=== PATIENT | female | born 1955 | race Caucasian/White ===

== ENCOUNTER 2023-04-13 19:53 | Observation (INO) | payer MEDICARE, OTHER, SELFPAY ==
[2023-04-13 19:58] VITALS: BP 129/70; PULSE 75; RESP 16; TEMP 37.9; O2SAT 97; BMI 21.7
--- NOTE | 2023-04-13 20:24 | XR_ITS ---
PROCEDURE INFORMATION: Exam: XR Left Knee Exam date and time: 04/13/2023 8:46 PM Age: 67 years old Clinical indication: Injury or trauma; Fall; Blunt trauma; Knee; Left; Additional info: Pain TECHNIQUE: Imaging protocol: Radiologic exam of the left knee. Views: 3 views. Total images: 3 COMPARISON: No relevant prior studies available. FINDINGS: Bones/joints: Osteopenia. Age indeterminate avulsion fracture lateral tibial spine. Otherwise, no acute fracture or joint dislocation. Moderate to large suprapatellar joint effusion. No concerning bone lesions or pathologic calcifications. No significant degenerative arthropathy. Soft tissues: Mild soft tissue swelling medial to the knee. IMPRESSION: 1. Age indeterminate avulsion fracture lateral tibial spine. 2. Moderate to large suprapatellar joint effusion. 3. Medial soft tissue swelling.
--- NOTE | 2023-04-13 20:26 | XR_ITS ---
PROCEDURE INFORMATION: Exam: XR Left Ankle Exam date and time: 04/13/2023 8:47 PM Age: 67 years old Clinical indication: Injury or trauma; Fall; Blunt trauma; Ankle; Left; Additional info: Pain TECHNIQUE: Imaging protocol: Radiologic exam of the left ankle. Views: 3 or more views. Total images: 3 COMPARISON: CR XR KNEE LT 3V 04/13/2023 8:46 PM FINDINGS: Bones/joints: Osteopenia. No acute fracture, joint dislocation, or joint effusion. The ankle mortise is maintained. No significant degenerative arthropathy. Calcaneal enthesophytes at the insertion of the Achilles tendon and plantar fascia. Soft tissues: Mild soft tissue swelling/edema lower extremity. IMPRESSION: 1. No acute osseous abnormality. 2. Mild lower extremity soft tissue swelling/edema. 3. Calcaneal enthesophytes.
--- NOTE | 2023-04-13 21:00 | PC.NURSE ---
Report given to Marie JIMENEZ.
--- NOTE | 2023-04-13 21:18 | HMH.EDGENADL ---
Discharge Plan Disposition Chief Complaint: PAIN Referrals Follow up/Referrals: Gary Emery MD [Primary Care Provider] - See instructions Sunny Clarke JR, MD [Physician] - See instructions Clinical Impressions Clinical Impression: Internal derangement of knee Discharge ED Provider: Paul (ED)[facility] HPI General Chief complaint: PAIN Stated complaint: AO 04/13@1500@home Injured L Knee/Leg Time Seen by Provider: 04/13/23 21:00 Mode of Arrival: Wheelchair Source of Information: Patient, Spouse and Medical Record Limitations: No Limitations Description of Symptoms (Recalled from ER Triage Doc. by RN): Patient stated that was working in yard. Stepped on stump and it fell through, twisting left knee. Swelling to left knee that radiates down to ankle. History of Present Illness HPI narrative: acute lt knee injury today - twist injury- unable to bear wt Onset (ago): hour(s) Location: lower extremity Severity: moderate Quality: aching Associated symptoms: denies other symptoms Related Data Home Medications Medication Instructions Recorded Confirmed citalopram 40 mg tablet 40 mg PO DAILY . 04/13/23 04/13/23 omeprazole 40 mg capsule,delayed 40 mg PO DAILY gerd 04/13/23 04/13/23 release pravastatin 20 mg tablet 20 mg PO HS High cholesterol 04/13/23 04/13/23 topiramate 100 mg tablet 100 mg PO DAILY . 04/13/23 04/13/23 trazodone 50 mg tablet 50 mg PO HS sleep 04/13/23 04/13/23 Allergies Allergy/AdvReac Type Severity Reaction Status Date / Time amoxicillin [From Augmentin] Allergy Verified 04/13/23 20:22 clavulanic acid Allergy Verified 04/13/23 20:22 [From Augmentin] morphine Allergy Verified 04/13/23 20:22 [facility] Disclaimer: The information contained in this section may have been updated after the patient was seen, as this information can be updated by other users. Social History Smoking Status: Current every day smoker alcohol intake: never current occupational status: employed Travel in the last 8 weeks: None ROS Obtained: Yes All systems reviewed & no additional complaints except as documented Physical Exam General General appearance: alert Head Head exam: normocephalic Eye Eye exam: Present PERRL and EOMI ENT ENT exam: Present mucous membranes moist Neck Neck exam: Present trachea midline Respiratory Respiratory exam: Absent respiratory distress Cardiovascular Cardiovascular exam: Present regular rate Expanded Lower Extremity Exam Left: Hip/Pelvis exam: Present pelvis stable Knee exam: Present tenderness, swelling and effusion; Absent erythema or knee extension intact Lower leg exam: Present tenderness and Achilles tendon intact Ankle exam: Present tenderness; Absent full ROM Neurovascular/Tendon exam: Present pulse deficit Gait: unable to bear weight Neurological Exam Neurological exam: Present alert, oriented X3 and CN II-XII intact; Absent motor sensory deficit Psychiatric Psychiatric exam: Present normal affect Skin Skin exam: Absent rash Medical Decision Making Medical Records Medical records reviewed: Yes I reviewed the patient's medical records. [facility] Inquiry Pt receiving controlled substance: No Vital Signs: 04/13/23 19:58 04/13/23 21:39 Temperature 100.3 F H 99.5 F Temperature Source Oral Oral Pulse Rate 87 Pulse Rate [Right] 75 Respiratory Rate 16 16 Blood Pressure 141/59 H Blood Pressure [Right Arm] 129/70 Blood Pressure Mean [Right Arm] 89 Blood Pressure Source Automatic Cuff Blood Pressure Source [Right Arm] Automatic Cuff Blood Pressure Position Supine Blood Pressure Position [Right Arm] Sitting 02 Sat by Pulse Oximetry 97 96 Oxygen Delivery Method Room Air Room Air Lab Data Lab results reviewed: Yes I reviewed the patient's lab results. Orders (Tests/Meds): ORDERS Category Date Time Status Ankle XR - Left minimum 3 Views [XR ankle LT min 3V] Exams 04/13/
--- NOTE | 2023-04-13 21:22 | XR_ITS ---
PROCEDURE INFORMATION: Exam: XR Left Hip Exam date and time: 04/13/2023 9:20 PM Age: 67 years old Clinical indication: Injury or trauma; Fall; Blunt trauma (contusions or hematomas); Hip; Patient HX: Fell and hit her left knee TECHNIQUE: Imaging protocol: Radiologic exam of the left hip. Views: 2 or 3 views hip with pelvis when performed. Total images: 3 COMPARISON: No relevant prior studies available. FINDINGS: Bones/joints: Osteopenia. No acute fracture or joint dislocation. Proximal femurs are intact. Hip joints are appropriate for age. No significant degenerative arthropathy. No widening of the pubic symphysis or sacroiliac joints. Mild degenerative spondylosis lower lumbar spine. Soft tissues: Unremarkable. Intraperitoneal space: Surgical clip midline pelvis. Gastrointestinal tract: Nonobstructive bowel gas pattern. Vasculature: Multiple pelvic phleboliths. IMPRESSION: Negative left hip and pelvis.
--- NOTE | 2023-04-13 21:25 | XR_ITS ---
PROCEDURE INFORMATION: Exam: XR Left Tibia and Fibula Exam date and time: 04/13/2023 9:21 PM Age: 67 years old Clinical indication: Injury or trauma; Blunt trauma; Lower leg; Patient HX: Fall and hit left knee TECHNIQUE: Imaging protocol: Radiologic exam of the left tibia and fibula. Views: 2 views. Total images: 4 COMPARISON: CR XR ANKLE LT MIN 3V 04/13/2023 8:47 PM FINDINGS: Bones/joints: Osteopenia. Age indeterminate avulsion fracture lateral tibial spine. Otherwise, no acute fracture or joint dislocation. Moderate to large suprapatellar joint effusion. No concerning bone lesions or calcifications. Soft tissues: Mild superficial soft tissue swelling/edema throughout the lower extremity. IMPRESSION: 1. Age indeterminate avulsion fracture lateral tibial spine. 2. No additional fractures. 3. Nonspecific mild superficial soft tissue edema. 4. Moderate to large suprapatellar joint effusion.
[2023-04-13 21:39] VITALS: BP 141/59; PULSE 87; RESP 16; TEMP 37.5; O2SAT 96
--- NOTE | 2023-04-13 21:51 | PC.NURSE ---
Dr. Miller on phone with Dr. Clarke.
--- NOTE | 2023-04-13 22:12 | PC.NURSE ---
paged dr lindsey @ this time
--- NOTE | 2023-04-13 22:16 | PC.NURSE ---
modesta on phone with dr lindsey
[2023-04-13 22:32] LABS: Coronavirus 19, PCR Not Detected (NotDetected); Influenza A, PCR Not Detected (NotDetected); Influenza B, PCR Not Detected (NotDetected)
--- NOTE | 2023-04-13 22:33 | PC.NURSE ---
Patient admitted to [address] Emery with internal arrangement of the left knee.
[2023-04-13 22:41] LABS: Basophils % 0.3 % (0.1-2.0); Eosinophils # 0.1 K/mm3 (0.0-0.4); Eosinophils % 0.4 % (0.1-12.0); Hematocrit 35.5 % (37.0-47.0); Hemoglobin 11.7 g/dL (12.2-16.2); Lymphocytes # 1.6 K/mm3 (0.7-4.5); Lymphocytes % 13.7 % (10-50); Mean Corpuscular Hemoglobin 31.1 pg (27.0-31.2); Mean Corpuscular Volume 94.3 fl (81-99); Mean Platelet Volume 7.7 fl (7.4-10.4); Monocytes # 0.6 K/mm3 (0.1-1.0); Monocytes % 4.9 % (1.7-9.3); Neutrophils # 9.7 K/mm3 (1.8-7.8); Neutrophils % 80.7 % (37.0-80.0); Platelet Count 240 K/mm3 (142-424); Red Blood Count 3.77 M/mm3 (4.20-5.40); Red Cell Distribution Width 14.3 % (11.5-17.5)
[2023-04-13 22:47] LABS: Chloride 102 mmol/L (98-107)
[2023-04-13 22:48] LABS: Potassium 3.6 mmoL/L (3.5-5.1); Sodium 139 mmol/L (136-145)
[2023-04-13 22:50] LABS: Alanine Aminotransferase 22 U/L (12-78); Alkaline Phosphatase 68 U/L (38-126); Aspartate Amino Transferase 29 U/L (14-36); Blood Urea Nitrogen 9 mg/dl (7-17); Creatinine Clearance Estimated 48 mL/min (50-200); Estimated Glomerular Filt Rate 72 ml/min (>60); GFR (African American) 87 ML/MIN (>60)
[2023-04-13 22:51] LABS: Albumin Level 4.3 g/dl (3.5-5.0); Albumin/Globulin Ratio 1.6 (1.1-1.8); Anion Gap 14.6 mEq/L (5-15); Calcium 9.9 mg/dl (8.4-10.2); Carbon Dioxide 26 mmol/L (22.0-30.0); Globulin 2.7 g/dL (1.3-3.2); Glucose 118 mg/dl (74-100)
[2023-04-13 22:53] LABS: Bilirubin,Total 0.1 mg/dl (0.2-1.3)
[2023-04-13 23:03] VITALS: BP 145/55; PULSE 70; RESP 16; O2SAT 99
[2023-04-13 23:56] VITALS: BP 137/87; PULSE 71; RESP 16; TEMP 37.1; O2SAT 97
[2023-04-14] VITALS: BP 122/65; PULSE 75; RESP 16; TEMP 36.9; O2SAT 93; O2SAT 98; BMI 23.5
--- NOTE | 2023-04-14 | PC.NURSE ---
pt arrived via wheelchair @ 00:00
[2023-04-14 03:57] VITALS: BMI 24.0
[2023-04-14 07:51] VITALS: BP 106/66; PULSE 61; RESP 18; TEMP 37.4; O2SAT 95
--- NOTE | 2023-04-14 08:23 | EXP.HP ---
History of Present Illness *Admission Date: 04/14/23 *Reason for visit:: left knee pain *History of present illness: Ms. Boyce is a 67-year-old female who was cleaning around an old tree stump when the stump gave way and her left foot fell into the tree stump twisting her knee. She states she felt like her foot went one way and her knee went the other. It immediately began swelling and she had difficulty bearing weight. She presented to the emergency room for further evaluation and treatment. Her knee x-ray showed an avulsion fracture of the lateral tibial spine, a moderate to large suprapatellar joint effusion, and medial soft tissue swelling. Her ankle x-ray showed mild lower extremity soft tissue swelling, but no fracture. Her hip x-ray was negative for fracture her tib-fib x-ray showed an avulsion fracture of the lateral tibial spine but no additional fractures. She was admitted and orthopedics was consulted. [facility] Disclaimer: The information contained in this section may have been updated after the patient was seen, as this information can be updated by other users. Medical History (Updated 04/14/23 @ 08:36 by ЮЛИЯ Young) Arthritis Depression Gastric ulcer History of gastroesophageal reflux (GERD) Hyperlipemia Hypertension Insomnia Migraines Surgical History (Updated 04/14/23 @ 08:29 by ЮЛИЯ Young) History of appendectomy History of cholecystectomy History of tonsillectomy Family History (Updated 04/14/23 @ 08:30 by ЮЛИЯ Young) Diabetes Coronary artery disease Cancer Hypertension Stroke Social History Smoking Status: Current every day smoker alcohol intake: never current occupational status: employed Travel in the last 8 weeks: None Review of Systems Constitutional Constitutional: Denies fatigue, Denies headache(s) and Denies weakness Eyes Eyes: Denies blurry vision and Denies diplopia ENT Ears, Nose, Mouth, and Throat: Denies headache(s), Denies nasal congestion, Denies sore throat and Denies vertigo *Cardiovascular Cardiovascular: Denies chest pain, Denies dyspnea and Denies leg edema *Respiratory Respiratory: Denies cough and Denies dyspnea *Gastrointestinal Gastrointestinal: Denies abdominal pain, Denies loose stools, Denies nausea and Denies vomiting *Genitourinary Genitourinary: Denies dysuria *Musculoskeletal Musculoskeletal: Reports arthralgias (left knee) and Denies myalgias *Neurologic Neurologic: Denies headache(s), Denies vertigo and Denies weakness Endocrine Endocrine: Denies fatigue Meds Home Medications and Allergies Home Medications Medication Instructions Recorded Confirmed Type citalopram 40 mg tablet 20 mg PO DAILY MOOD 04/13/23 04/14/23 History omeprazole 40 mg capsule,delayed 40 mg PO DAILY Acid reflux 04/13/23 04/13/23 History release pravastatin 20 mg tablet 20 mg PO HS Cholesterol 04/13/23 04/13/23 History topiramate 100 mg tablet 100 mg PO BID MIGRAINES 04/13/23 04/14/23 History trazodone 50 mg tablet 50 mg PO HS sleep 04/13/23 04/13/23 History cetirizine 10 mg tablet 10 mg PO DAILY Allergy symptoms 04/14/23 04/14/23 History cyanocobalamin (vitamin B-12) 500 500 mcg PO DAILY Supplement 04/14/23 04/14/23 History mcg tablet New Prescriptions to Start Prescriptions: Allergies Allergy/AdvReac Type Severity Reaction Status Date / Time amoxicillin [From Augmentin] Allergy Verified 04/13/23 20:22 clavulanic acid Allergy Verified 04/13/23 20:22 [From Augmentin] morphine Allergy Verified 04/13/23 20:22 Exam Data for Last 24 hours Vital signs and Labs for Last 24 Hours: Temp Pulse Resp BP Pulse Ox 99.3 F 61 18 106/66 L 95 04/14/23 07:51 04/14/23 07:51 04/14/23 07:51 04/14/23 07:51 04/14/23 07:51 Laboratory Results - last 24 hr 04/13/23 22:25: SARS-CoV-2 (PCR) Not detected, Influenza A Untype (PCR) Not detected, Influenza Type B (PCR)
--- NOTE | 2023-04-14 08:35 | HMH.PHAINT1 ---
Pharmacy Intervention Comments: MEDICATION RECONCILIATION COMPLETED ON PATIENT USING EXTERNAL FILL HISTORY FROM PHARMACY AND LIST FROM [facility]. -ANTWAN MOYA, VISHALD
--- NOTE | 2023-04-14 09:04 | MR_ITS ---
FINAL REPORT CLINICAL HISTORY: LEFT KNEE PAIN. PAIN AFTER FALL. FINDINGS: Multiplanar MR imaging of the right knee was performed without contrast. Motion artifact is identified on all of the images. The medial meniscus is intact. There is a tear of the anterior horn of the lateral meniscus. The anterior and posterior cruciate ligaments are intact. There is a partial tear of the proximal medial collateral ligament. The lateral collateral ligamentous complex is intact. The patellar and quadriceps tendons are intact. There is a mildly comminuted fracture of the lateral tibial plateau. There is approximately 2 mm of impaction of the main fracture fragment. Mild degenerative changes are present. No focal abnormality is identified of the articular cartilage. Large joint effusion is seen. The musculature is intact. No soft tissue mass or cyst is identified. IMPRESSION: Tear anterior horn lateral meniscus. Partial tear of the medial collateral ligament. Mildly comminuted fracture of the lateral tibial plateau. Reviewed, Interpreted and Dictated by Manfred Ro III, MD Transcribed by Ankita Patrick Authenticated and [facility]
[2023-04-14 10:02] VITALS: BMI 24.0
--- NOTE | 2023-04-14 14:44 | CT_ITS ---
FINAL REPORT TECHNIQUE: Thin section axial CT images of the left knee with coronal and sagittal reformats were performed. 3D reformatted images were also obtained. This study was performed with techniques to keep radiation doses as low as reasonably achievable (ALARA). Individualized dose reduction techniques using automated exposure control or adjustment of mA and/or kV according to the patient''s size were employed. CLINICAL HISTORY: tibial plateau fracture FINDINGS: There is a comminuted, nondisplaced fracture of the lateral tibial plateau with 1 mm of impaction of a fracture fragment. There is moderate hemarthrosis. No other fracture is identified. Joint space is normally aligned. IMPRESSION: Comminuted, nondisplaced fracture of the lateral tibial plateau. Reviewed, Interpreted and Dictated by Manfred Ro III, MD Transcribed by Donna Payton Authenticated and [facility]
[2023-04-14 16:00] VITALS: BP 118/57; PULSE 60; RESP 18; TEMP 37; O2SAT 94
--- NOTE | 2023-04-14 16:05 | HMH.PTEV ---
Physical Therapy Evaluation Rehab PT IP Evaluation Start: 04/14/23 14:59 Freq: ONCE Status: Active Protocol: Document 04/14/23 15:48 ADAM (Rec: 04/14/23 16:04 ADAM [id number]) Subjective/History History History Patient is a 67 year old female admitted to [facility] 04/13/23 secondary to internal derangement of L knee. Most recent imagning indicates tear of L anterior lateral meniscus, Partial tear of MCL and fracture of L medial tibial plateau. 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 Patient previously independent with all ADL's/ IADL's. Patients reports multiple family members that can help with transition to home. Subjective Subjective I can't put any weight on my leg because it hurts so bad. Rehab PT IP Eval Objective Appearance Patient Behavior Appropriate,Cooperative Patient Orientation Person,Place,Day of Week Difficulty following instructions none Speech Pattern Clear,Appropriate Ambulation Patient Able to Ambulate Yes Ambulation Observation Ambulation Distance (feet) 6 Ambulation Assistive Device Rolling Walker Ambulation Ability Minimal x 2 (25% assist) Balance Ability to Arise Able, uses arms to help Standing Balance Unsteady Dynamic Sitting Balance Ability Normal Dynamic Standing Balance Ability Fair Transfers Bed Transfer Ability Independent Sit to Stand Bed Transfer Ability Minimal x 1 (25% assist) Pain Left Knee Pain Intensity 8 ROM LLE PT ROM Status ABN Abnormal ROM Comment L knee flx/ext ltd, in immobilizer MMT LLE PT MMT ABN Abnormal MMT Grade 3-/5 Rehab PT IP prob,goals,plan Problems Date of Evaluation: 04/14/23 PT IP Problems Gait,Balance,Self care,Safety Rehab Potential Rehab Potential Good Equipment Needs Assistive Devices Rolling / Wheeled Walker Plan PT Intervention Plan Transfers,Gait,Balance,Safety, Therapeutic Exercise
--- NOTE | 2023-04-14 17:25 | EXP.ORTH.CON ---
History of Present Illness *Admission Date: 04/14/23 *History of present illness: Ms. Boyce is a 67-year-old female who was cleaning around an old tree stump when the stump gave way and her left foot fell into the tree stump twisting her knee. She states she felt like her foot went one way and her knee went the other. It immediately began swelling and she had difficulty bearing weight. She presented to the emergency room for further evaluation and treatment. Her knee x-ray showed an avulsion fracture of the lateral tibial spine, a moderate to large suprapatellar joint effusion, and medial soft tissue swelling. Her ankle x-ray showed mild lower extremity soft tissue swelling, but no fracture. Her hip x-ray was negative for fracture her tib-fib x-ray showed an avulsion fracture of the lateral tibial spine but no additional fractures. She was admitted and orthopedics was consulted. [facility] Disclaimer: The information contained in this section may have been updated after the patient was seen, as this information can be updated by other users. Medical History (Updated 04/14/23 @ 17:33 by Sunny Clarke JR, MD) Arthritis Depression Gastric ulcer History of gastroesophageal reflux (GERD) Hyperlipemia Hypertension Insomnia Migraines Surgical History (Updated 04/14/23 @ 08:29 by ЮЛИЯ Young) History of appendectomy History of cholecystectomy History of tonsillectomy Family History (Updated 04/14/23 @ 08:30 by ЮЛИЯ Young) Other Cancer Coronary artery disease Diabetes Hypertension Stroke Social History Smoking Status: Current every day smoker alcohol intake: never current occupational status: employed Travel in the last 8 weeks: None Review of Systems Constitutional Constitutional: Denies headache(s) and Denies weakness ENT Ears, Nose, Mouth, and Throat: Denies headache(s) and Denies vertigo *Neurologic Neurologic: Denies headache(s), Denies vertigo and Denies weakness Meds Home Medications and Allergies Home Medications Medication Instructions Recorded Confirmed Type citalopram 40 mg tablet 20 mg PO DAILY MOOD 04/13/23 04/14/23 History omeprazole 40 mg capsule,delayed 40 mg PO DAILY Acid reflux 04/13/23 04/13/23 History release pravastatin 20 mg tablet 20 mg PO HS Cholesterol 04/13/23 04/13/23 History topiramate 100 mg tablet 100 mg PO BID MIGRAINES 04/13/23 04/14/23 History trazodone 50 mg tablet 50 mg PO HS sleep 04/13/23 04/13/23 History cetirizine 10 mg tablet 10 mg PO DAILY Allergy symptoms 04/14/23 04/14/23 History cyanocobalamin (vitamin B-12) 500 500 mcg PO DAILY Supplement 04/14/23 04/14/23 History mcg tablet oxycodone 5 mg tablet 5 mg PO Q4H PRN pain #30 tabs 04/14/23 Rx New Prescriptions to Start Prescriptions: oxycodone Sunny Clarke JR Allergies Allergy/AdvReac Type Severity Reaction Status Date / Time amoxicillin [From Augmentin] Allergy Verified 04/13/23 20:22 clavulanic acid Allergy Verified 04/13/23 20:22 [From Augmentin] morphine Allergy Verified 04/13/23 20:22 Ortho Exam (Inpt) Vital signs and Labs for Last 24 Hours: Temp Pulse Resp BP Pulse Ox 98.6 F 60 18 118/57 L 94 L 04/14/23 16:00 04/14/23 16:00 04/14/23 16:00 04/14/23 16:00 04/14/23 16:00 Laboratory Results - last 24 hr 04/13/23 22:25: SARS-CoV-2 (PCR) Not detected, Influenza A Untype (PCR) Not detected, Influenza Type B (PCR) Not detected 04/13/23 22:32: WBC 12.0 H, RBC 3.77 L, Hgb 11.7 L, Hct 35.5 L, MCV 94.3, MCH 31.1, MCHC 33.0, RDW 14.3, Plt Count 240, MPV 7.7, Neut % (Auto) 80.7 H, Lymph % (Auto) 13.7, [place] % (Auto) 4.9, Eos % (Auto) 0.4, Baso % (Auto) 0.3, Neut # (Auto) 9.7 H, Lymph # (Auto) 1.6, [place] # (Auto) 0.6, Eos # (Auto) 0.1, Baso # (Auto) 0.0 04/13/23 22:32: Sodium 139, Potassium 3.6, Chloride 102, Carbon Dioxide 26, Anion Gap 14.6, BUN 9, Creatinine 0.80, Estimated Cr
--- NOTE | 2023-04-14 19:04 | PC.NURSE ---
pt has done well this shift. she was medicated for pain x2 with prn dilaudid with good effectiveness. knee brace provided from pt.
[2023-04-14 20:00] VITALS: BP 119/63; PULSE 66; RESP 16; TEMP 36.7; O2SAT 91
--- NOTE | 2023-04-15 02:45 | PC.NURSE ---
patient had dose of dilaudid at beginning of shift; recvd v.o. from Dr. Michaud to begin giving Oxycodone 5-325mg 1-2 tablets every 6 hours PRN for pain (1-tablet for moderate pain & 2 tablets for severe pain). Patient just recvd 1st dose of oral pain medication with HS meds and 2nd dose of oral medications now. Instructed patient to begin bowel regimen when she gets home due to the side effect of constipation with narcotics. Patient verb understanding.
[2023-04-15 04:00] VITALS: BP 95/45; PULSE 65; RESP 16; TEMP 36.6; O2SAT 95; BMI 24.0
[2023-04-15 07:22] VITALS: BP 96/53; PULSE 59; RESP 17; TEMP 36.4; O2SAT 93
--- NOTE | 2023-04-15 11:48 | EXP.DC.SUM ---
General Admission date:: 04/13/23 Discharge date: 04/15/23 HPI HPI HPI: Ms. Boyce is a 67-year-old female who was cleaning around an old tree stump when the stump gave way and her left foot fell into the tree stump twisting her knee. She states she felt like her foot went one way and her knee went the other. It immediately began swelling and she had difficulty bearing weight. She presented to the emergency room for further evaluation and treatment. Her knee x-ray showed an avulsion fracture of the lateral tibial spine, a moderate to large suprapatellar joint effusion, and medial soft tissue swelling. Her ankle x-ray showed mild lower extremity soft tissue swelling, but no fracture. Her hip x-ray was negative for fracture her tib-fib x-ray showed an avulsion fracture of the lateral tibial spine but no additional fractures. She was admitted and orthopedics was consulted. Hospital Course Hospital Course Hospital Course: Patient was admitted as noted. Pain control was achieved with Dilaudid, orthopedics was consulted. CT imaging and MRI was done to evaluate whether or not there was a tendon or ligament tear that would require operative intervention. There was not, but orthopedics wished patient to be held over another night so that PT could reevaluate her to see if she would be safe at home with nonweightbearing status. This was done, and I followed patient this morning on cross cover as her primary physician is out of town. She felt well overnight, tolerated p.o. Percocet well and PT gave us a good report this morning of her ability to transfer with nonweightbearing status. She lives at home, does care for her elderly mother but her is involved and will be able to help her out during her rehabilitation.. Plan to be discharged home today with a walker. We will have orthopedics see her next week and Percocet will be prescribed for her pain from her fracture. Exam Data for Last 24 hours Vital signs and Labs for Last 24 Hours: Temp Pulse Resp BP Pulse Ox 97.6 F 59 L 17 96/53 L 93 L 04/15/23 07:22 04/15/23 07:22 04/15/23 07:22 04/15/23 07:22 04/15/23 07:22 I & O for Last 24 hours: Intake & Output 04/12/23 04/13/23 04/14/23 04/15/23 11:59 11:59 11:59 11:59 Intake Total 329 / 329 120 / 120 Output Total 700 / 700 1200 / 1200 Balance -371 / -371 -1080 / -1080 Weight 135 lb 5.821 oz 135 lb 6 oz Constitutional Constitutional: no acute distress *Routine HEENT Exam Head: Present normocephalic Eye: Present EOMI and PERRL ENT: Present mucous membranes moist *Routine Neck Exam Neck: Present supple; Absent lymphadenopathy *Routine Respiratory Exam Respiratory: Present CTA bilaterally *Routine Cardiovascular Exam Cardiovascular: Present RRR *Routine Abdominal Exam Abdominal: Present soft and normoactive bowel sounds; Absent tenderness *Routine Extremities Exam Extremities: Absent cyanosis, clubbing or edema Comments: Patient with significant pain around the left knee, and a hinged brace-pain with movement but no pain at rest. Please see orthopedic and PT exam for further details. *Routine Skin Exam Skin: Present warm; Absent rash *Routine Neurological Exam Neurological: Present alert and oriented X3 DS: Diagnosis Discharge Diagnosis (1) Closed fracture of lateral portion of left tibial plateau: Status: Acute Code(s): S82.122A - Displaced fracture of lateral condyle of left tibia, initial encounter for closed fracture Meds Home Medications and Allergies Home Medications Medication Instructions Recorded Confirmed Type citalopram 40 mg tablet 20 mg PO DAILY MOOD 04/13/23 04/14/23 History omeprazole 40 mg capsule,delayed 40 mg PO DAILY Acid reflux 04/13/23 04/13/23 History release pravastatin 20 mg tablet 20 mg PO HS Cholesterol 04/13/23 04/13/23 History topiramate 100 mg tablet 100 mg PO BID MIGRAINES 04/13/23 04/14/23 History trazodone 50 mg tablet 50 mg PO HS sleep 05
--- NOTE | 2023-04-18 13:40 | CARE MANAGER ---
Contacted patient related to recent hospital stay. She states she did fern picker her pain medication, but that she is still having pain. Transferred her to ortho to schedule a follow up appointment. patient denies any questions or concerns. BARBARA Martinez
== END 2023-04-15 13:14 | disposition home or self-care (01) ==
LOC: ER 22:10 → 2ND 22:39
PROVIDERS: Admitting Provider Family Medicine; Emergency Provider Emergency Medicine; PCP Family Medicine; Visit Provider Family Medicine
DX: S82.122A Displaced fracture of lateral condyle of left tibia, initial encounter for closed fracture (principal); I10 Essential (primary) hypertension; E78.5 Hyperlipidemia, unspecified; F17.210 Nicotine dependence, cigarettes, uncomplicated; Z79.899 Other long term (current) drug therapy; Z20.822 Contact with and (suspected) exposure to COVID-19; W17.2XXA Fall into hole, initial encounter; Y92.017 Garden or yard in single-family (private) house as the place of occurrence of the external cause
CPT/HCPCS: G0378; 73502; 73562; 73590; 73610; 73700; 73721; 80053; 85025; 87635; 87636; 97116; 97163; 97530; 97760; 99285; C9803; J2405; U0003; U0005

== ENCOUNTER → 2023-04-21 14:14 | Outpatient (CLI) | payer MEDICARE, OTHER, SELFPAY ==
--- NOTE | 2023-04-21 14:23 | XR_ITS ---
FINAL REPORT CLINICAL HISTORY: lt tibia fx COMPARISON: 04/14/2023 FINDINGS: LEFT KNEE Three views demonstrate a nondisplaced lateral tibial plateau fracture. There is a small joint effusion. Generalized osteopenia is noted. IMPRESSION: Non displaced lateral tibial plateau fracture without depressed fragment. Reviewed, Interpreted and Dictated by Mar Camarillo MD Transcribed by Sushma Mcclure Authenticated and [facility]
== END ==
PROVIDERS: PCP Family Medicine; Visit Provider Orthopaedic Surgery
DX: S82.122A Displaced fracture of lateral condyle of left tibia, initial encounter for closed fracture (principal); M25.562 Pain in left knee
CPT/HCPCS: 73562

== ENCOUNTER → 2023-05-19 12:20 | Outpatient (CLI) | payer MEDICARE, OTHER, SELFPAY ==
--- NOTE | 2023-05-19 12:23 | XR_ITS ---
FINAL REPORT CLINICAL HISTORY: knee pain COMPARISON: 04/21/2023 FINDINGS: LEFT KNEE SERIES Three views of the left knee were obtained. There is a comminuted fracture of the lateral tibial plateau. There is evidence of interval healing. The bony alignment is stable. There are mild degenerative changes. There is no soft tissue abnormality. IMPRESSION: Interval healing of a comminuted fracture of the lateral tibial plateau with stable bony alignment. Mild degenerative changes. Reviewed, Interpreted and Dictated by Manfred Ro III, MD Transcribed by Magnolia Kirk Authenticated and [facility]
== END ==
PROVIDERS: PCP Family Medicine; Visit Provider Orthopaedic Surgery
DX: S82.122A Displaced fracture of lateral condyle of left tibia, initial encounter for closed fracture (principal); M25.562 Pain in left knee
CPT/HCPCS: 73562

== ENCOUNTER 2023-05-19 13:03 | Outpatient (RCR) | payer MEDICARE, OTHER, SELFPAY | END 2023-05-19 14:00 | disposition home or self-care (01) | LOC: PT 13:03 | PROVIDERS: Visit Provider Orthopaedic Surgery | DX: S82.122A Displaced fracture of lateral condyle of left tibia, initial encounter for closed fracture (principal) | CPT/HCPCS: 97760 ==

== ENCOUNTER → 2023-06-23 10:46 | Outpatient (CLI) | payer MEDICARE, OTHER, SELFPAY ==
--- NOTE | 2023-06-23 10:52 | XR_ITS ---
FINAL REPORT CLINICAL HISTORY: lt knee pain FINDINGS: Left knee Three views were obtained. There is no acute fracture or dislocation. There are mild degenerative changes. No joint effusion is identified. No soft tissue abnormality is identified. IMPRESSION: No acute process. Reviewed, Interpreted and Dictated by Manfred Ro III, MD Transcribed by Ankita Patrick Authenticated and [facility]
== END ==
PROVIDERS: PCP Family Medicine; Visit Provider Orthopaedic Surgery
DX: S82.122A Displaced fracture of lateral condyle of left tibia, initial encounter for closed fracture (principal)
CPT/HCPCS: 73562

== ENCOUNTER 2023-09-20 13:00 | Outpatient (RCR) | payer MEDICARE, OTHER, SELFPAY ==
--- NOTE | 2023-07-20 15:14 | HMH.PTOPEV ---
PT Outpatient Evaluation Rehab PT Outpatient Evaluation Start: 07/20/23 13:58 Freq: Status: Active Protocol: Document 07/20/23 13:58 RAYSHAWN (Rec: 07/20/23 15:14 RAYSHAWN [id number]) E-signed By Veronica King, PT Outpatient Therapy Subjective History Subjective History Pt is a 68 y/o female who reports she fractured her left lower leg on 04/13/23 when it went through a rotted tree stump while trimming bushes. Pt reports she went to the ED the same day due to inability to walk. Pt reports she had a MRI and a CT scan and was found to have a L comminuted lateral tibial condyle fracture. Pt reports she was placed in a leg long brace and was NWB for 8-9 weeks. Pt reports she was then transitioned into a hinged knee brace for a few more weeks and partially increased her WB status. Pt reports she was allowed to removed the knee brace and quit using a RW for ambulation about 2 weeks. Pt reports she is doing well with this and denies falls. Pt reports she had recent xrays on 06/23/23 which per MD demonstrate interval fracture consolidation without displacement. Pt reports her leg was swelling from the ankle to the foot with increased activities initially but this is improving. Pt reports she has decreased light touch sensation of the lateral lower leg compared to the right but denies true numbness or tingling. Pt reports she has some deep generalized L knee pain that is aggravated by standing/ walking <5 minutes, stepping up with the bad leg, getting in/out of the car, and stiffness with prolonged
--- NOTE | 2023-08-24 12:28 | HMH.RHREAS ---
Rehab Reassessment Rehab OP Re-assessment Start: 07/20/23 13:58 Freq: Status: Active Protocol: Document 08/24/23 11:24 RAYSHAWN (Rec: 08/24/23 12:28 RAYSHAWN [id number]) E-signed By Veronica King PT Lower Extremity Functional Index Activities Today, do you or would you have any difficulty at all with: a.Any of your usual work, housework or A little bit of difficulty school activities b. Your usual hobbies, recreational or A little bit of difficulty sporting activities c. Getting into or out of the bath No difficulty d. Walking between rooms No difficulty e. Putting on your shoes or socks A little bit of difficulty f. Squatting Moderate difficulty g. Lifting an object, like a bag of No difficulty groceries from the floor h. Performing light activities around No difficulty your home i. Performing heavy activities around A little bit of difficulty your home j. Getting into or out of a car A little bit of difficulty k. Walking 2 blocks No difficulty l. Walking a mile A little bit of difficulty m. Going up or down 10 stairs (about 1 A little bit of difficulty flight of stairs) n. Standing for 1 hour No difficulty o. Sitting for 1 hour A little bit of difficulty p. Running on even ground A little bit of difficulty q. Running on uneven ground Moderate difficulty r. Making sharp turns while running fast Moderate difficulty s. Hopping No difficulty t. Rolling over in bed No difficulty LEFI Score Lower Extremity Functional Index Score 65 Rehab Re-assessment Subjective Subjective Pt reports her mother has been sick in the hospital which is why she has been unable to attend the last few PT sessions. Pt reports she has been somewhat compliant with her HEP during this time although she has been busy caring for her mom. Overall, the pt reports she feels 50% improved since starting PT and reports pain at worst as 3/10 on VAS scale. Pt reports swelling has improved some with wear of Tubigrip however it does still continue to swell throughout the day. Pt reports she still is cautious with stairs and uses a step to pattern as well as has trouble descending the stairs
== END 2023-09-20 13:05 | disposition home or self-care (01) ==
LOC: PT 13:00
PROVIDERS: PCP Family Medicine; Visit Provider Orthopaedic Surgery
DX: S82.122A Displaced fracture of lateral condyle of left tibia, initial encounter for closed fracture (principal)
CPT/HCPCS: 97014; 97016; 97110; 97163; 97164; 97530; G0283

== ENCOUNTER → 2023-10-18 08:11 | Outpatient (CLI) | payer MEDICARE, OTHER, SELFPAY ==
--- NOTE | 2023-10-18 08:22 | MM_ITS ---
PROCEDURE INFORMATION: Exam: MG Bilateral Screening 3D Mammography Exam date and time: 10/18/2023 8:15 AM Age: 68 years old Clinical indication: Screening examination.Screening. No family history of breast cancer. TECHNIQUE: Imaging protocol: Bilateral Screening tomosynthesis and 2D mammography including computer-aided detection (CAD) when performed. COMPARISON: No relevant prior studies available.If prior mammograms are provided, I am happy to add an addendum. FINDINGS: MAMMOGRAPHY: Breast composition: There are scattered areas of fibroglandular density. Mass: None. Architectural distortion: None. Calcifications: No suspicious calcifications. Asymmetric density: None. Skin thickening: None. Axillary adenopathy: None. IMPRESSION: No mammographic evidence of malignancy. Annual screening is recommended unless otherwise clinically indicated. ASSESSMENT: BI-RADS Category 1: Negative
--- NOTE | 2023-10-18 08:23 | XR_ITS ---
FINAL REPORT CLINICAL HISTORY: POST MENOPAUSAL COMPARISON: None FINDINGS: Using L1-4, the bone mineral density of the spine is 0.755 g/cm2, corresponding to T-score of -2.7, consistent with osteoporosis. Using the left hip, the bone mineral density of the femoral neck is 0.524 g/cm2, corresponding to a T-score of -3.4, consistent with osteoporosis. Using the right hip, the bone mineral density of the femoral neck is 0.671 g/cm2, corresponding to a T-score of -2.2, consistent with osteopenia. FRAX not reported because some T-score at or below -2.5. NOTE: T-score: Standard deviation compared with peak bone mass of young adult mean. *Following the recommendations of the International Society of Bone densitometry, classification of hip BMD is based on the lower of two T-scores; total hip or femoral neck. IMPRESSION: Diminished bone mineral density consistent with osteoporosis. Reviewed, Interpreted and Dictated by Esa Barone MD Transcribed by Pennie Patten Authenticated and [facility]
--- NOTE | 2023-10-18 08:24 | CT_ITS ---
FINAL REPORT TECHNIQUE: Axial CT images of the chest were obtained without contrast. Low-dose protocol was utilized. This study was performed with techniques to keep radiation doses as low as reasonably achievable (ALARA). Individualized dose reduction techniques using automated exposure control or adjustment of mA and/or kV according to the patient's size were employed. CLINICAL HISTORY: H/O TOBACCO USE prior smoker , quit 6 mos ago, prev smoked 7 cigs per day for 52 years COMPARISON: None FINDINGS: CT CHEST WITHOUT, LOW DOSE SCREENING CT Di Vol: 2.90 mGy DLP: 95.86 mGy*cm Mild mediastinal adenopathy is noted. There are precarinal lymph nodes measuring up to 1.4 cm. The heart size is normal. There is no pleural or pericardial effusion. The lung windows show a dominant mass in the posterior left upper lobe measuring 2.6 x 1.7 cm with spiculated margins and surrounding cicatricial reaction. This is best seen on image 15 of series 4 and is highly concerning for malignancy. There is a pleural-based focus in the anterior inferior left hemothorax measuring 1.2 cm best seen on image 48 of series 4. There is a separate adjacent focus measuring 1.0 cm best seen on image 50 of series 4. Limited images of the upper abdomen demonstrate no acute findings. IMPRESSION: 2.6 cm dominant posterior left upper lobe mass as above. LR Category 4B: Highly recommend PET/CT and/or tissue sampling. Reviewed, Interpreted and Dictated by Esa Barone MD Transcribed by Pennie Patten Authenticated and . [facility]
== END ==
PROVIDERS: PCP Family Medicine; Visit Provider Family Medicine
DX: Z12.31 Encounter for screening mammogram for malignant neoplasm of breast (principal); Z13.820 Encounter for screening for osteoporosis; Z12.2 Encounter for screening for malignant neoplasm of respiratory organs; Z78.0 Asymptomatic menopausal state; Z87.891 Personal history of nicotine dependence
CPT/HCPCS: 71271; 77063; 77067; 77080

== ENCOUNTER 2024-10-23 15:43 | Outpatient (CLI) | payer MEDICARE, OTHER, SELFPAY ==
--- NOTE | 2024-10-23 15:46 | MM_ITS ---
PROCEDURE INFORMATION: Exam: MG Bilateral Screening 3D Mammography Exam date and time: 10/23/2024 3:45 PM Age: 69 years old Clinical indication: Screening mammogram TECHNIQUE: Imaging protocol: Bilateral Screening tomosynthesis and 2D mammography including computer-aided detection (CAD) when performed. COMPARISON: MG MM DIG SCREENING MAMM BI W/CAD 10/18/2023 8:15 AM FINDINGS: MAMMOGRAPHY: Breast composition: There are scattered areas of fibroglandular density. Mass: 0.7 cm mass within the outer right middle 1/3, approximating 9 o'clock 7 cm from the nipple should be further assessed with spot views in CC/MLO projection. Ultrasound should also be scheduled. Architectural distortion: No new or suspicious architectural distortion. Calcifications: No new or suspicious calcifications are present Asymmetric density: No new or suspicious asymmetric density is present Skin thickening: None. Axillary adenopathy: None. IMPRESSION: 0.7 cm mass within the outer right middle 1/3, approximating 9 o'clock 7 cm from the nipple should be further assessed with spot views in CC/MLO projection. Ultrasound should also be scheduled. ASSESSMENT: BI-RADS Category 0: Incomplete - Need Additional Imaging Evaluation
== END 2024-10-23 23:59 | disposition home or self-care (01) ==
LOC: RAD 15:44
PROVIDERS: PCP Family Medicine; Visit Provider Family Medicine
DX: Z12.31 Encounter for screening mammogram for malignant neoplasm of breast (principal)
CPT/HCPCS: 77063; 77067

== ENCOUNTER 2024-11-01 13:20 | Outpatient (CLI) | payer MEDICARE, OTHER, SELFPAY ==
--- NOTE | 2024-11-01 13:23 | US_ITS ---
PROCEDURE INFORMATION: Exam: US Right Breast, Complete Exam date and time: 11/01/2024 1:24 PM Age: 69 years old Clinical indication: Patient recalled for further evaluation of a right breast mass TECHNIQUE: Imaging protocol: Complete ultrasound of all four quadrants of the right breast and the retroareolar regions, including ultrasound of the axilla when performed. COMPARISON: MG MM DIG SCREENING MAMM BI W/CAD 10/23/2024 3:45 PM FINDINGS: ULTRASOUND: Breast ultrasound findings: Sonographic images of the right breast including the retroareolar region, all 4 quadrants and the axilla demonstrates an ovoid hypoechoic solid mass in the 9 o'clock axis 4 cm from the nipple most likely correlating with the mass on mammography. Dysplasia reniform in shape suggestive of a possible lymph node. It measures 0.7 x 0.4 x 0.6 cm. The finding is likely benign in etiology. No other solid or cystic masses are noted in the remainder of the right breast. No architectural distortion or acoustical shadowing. No skin thickening or axillary adenopathy. IMPRESSION: Mass on screening mammography may correlate with a probably benign intramammary lymph node on sonography. A six-month follow-up diagnostic right mammogram and targeted right breast ultrasound are recommended to ensure stability over time ASSESSMENT: BI-RADS Category 3: Probably benign.
== END 2024-11-01 23:59 | disposition home or self-care (01) ==
LOC: RAD 13:21
PROVIDERS: PCP Family Medicine; Visit Provider Family Medicine
DX: R92.8 Other abnormal and inconclusive findings on diagnostic imaging of breast (principal)
CPT/HCPCS: 76641

== ENCOUNTER 2025-02-18 20:51 | Emergency (ER) | payer MEDICARE, OTHER, SELFPAY ==
[2025-02-18 20:59] VITALS: BP 126/40; PULSE 71; RESP 16; TEMP 36.6; O2SAT 98; BMI 25.2
--- NOTE | 2025-02-18 22:48 | ED_ITS ---
Discharge Plan Disposition Patient Disposition: Home, Self-Care Condition: Good Prescriptions Prescriptions: No Action citalopram 40 mg tablet 20 mg PO DAILY trazodone 50 mg tablet 50 mg PO HS omeprazole 40 mg capsule,delayed release(DR/EC) 40 mg PO DAILY pravastatin 20 mg tablet 20 mg PO HS topiramate 100 mg tablet 100 mg PO BID cetirizine 10 mg Tablet 10 mg PO DAILY cyanocobalamin (vitamin B-12) 500 mcg Tablet 500 mcg PO DAILY Referrals Follow up/Referrals: Gary Emery MD [Primary Care Provider] - See instructions Activity Restrictions/Add. Instructions Additional Instructions/Restrictions: Please have the stitches removed in 10-14 days. Please return with any new or worsening symptoms. Clinical Impressions Clinical Impression: Laceration of thumb Instructions Patient Instructions: DI for Laceration Repair Print Language Print Language: Citizen Of [place] Discharge ED Provider: Rusty Giraldo Adult HPI General Chief complaint: Wound/Laceration Stated complaint: AO 02/18/252019 right thumb laceration Time Seen by Provider: 02/18/25 22:48 Mode of Arrival: Ambulatory Source of Information: Patient Description of Symptoms (Recalled from ER Triage Doc. by RN): laceration to right thumb while washing dishes. small amount of bleeding History of Present Illness HPI narrative: Patient presents for evaluation of a laceration over her dominant right thumb. She washed the wound prior to evaluation. She is not sure if she is up-to-date on tetanus. Bleeding controlled prior to arrival. No other complaints Please note that above description of symptoms, in this electronic medical re cord under categorization of recalled from ER triage doctor by RN are reflective of an initial nursing assessment, however, is not reflective of my full history and physical exam that was personally taken and clarified. Consequentially, this preceding description of symptoms, which may include the patient's categorized chief complaint in the EMR, do not reflect my personal clinical impression, and the ultimate description of history of present illness and patient stated complaints should be deferred to this section of the note. Unless stated otherwise or congruent with this section of the note, additional signs, symptoms, or incongruence should be interpreted as inaccurate with my clinical impression. Related Data Home Medications ?Medication ?Instructions ?Recorded ?Confirmed citalopram 40 mg tablet 20 mg PO DAILY MOOD 04/13/23 06/23/23 omeprazole 40 mg capsule,delayed 40 mg PO DAILY Acid reflux 04/13/23 06/23/23 release pravastatin 20 mg tablet 20 mg PO HS Cholesterol 04/13/23 06/23/23 topiramate 100 mg tablet 100 mg PO BID MIGRAINES 04/13/23 06/23/23 trazodone 50 mg tablet 50 mg PO HS sleep 04/13/23 06/23/23 cetirizine 10 mg tablet 10 mg PO DAILY Allergy symptoms 04/14/23 06/23/23 cyanocobalamin (vitamin B-12) 500 500 mcg PO DAILY Supplement 04/14/23 06/23/23 mcg tablet Allergies Allergy/AdvReac Type Severity Reaction Status Date / Time amoxicillin (From Augmentin) Allergy Verified 06/23/23 11:50 clavulanic acid (From Allergy Verified 06/23/23 11:50 Augmentin) morphine Allergy Verified 06/23/23 11:50 [facility] Disclaimer: The information contained in this section may have been updated after the patient was seen, as this information can be updated by other users. Medical History Arthritis Depression Gastric ulcer History of gastroesophageal reflux (GERD) Hyperlipemia Hypertension Insomnia Migraines Surgical History History of appendectomy History of cholecystectomy History of tonsillectomy Family History Other Cancer Coronary artery disease Diabetes Hypertension Stroke Social History Smoking Status: Unknown if ever smoked alcohol intake: never current occupational status: employed Travel in the last 8 weeks: None Have you lived/traveled outside [place] in past 30 days?: No Contact w/someone who lives/traveled outside US past 30 days?: No Exposure to someone with infectious disease in past 14 days?: No Do you have a fever (greater than 100.4 F or 38 C)?: No Have you tested positive for COVID-19: No Exposed to someone with COVID-19 in past 14 days?: No Do you have a sore throat?: No Do you have a cough?: No Do you have any weakness?: No Do you have any diarrhea?: No Are you experiencing any unusual bleeding?: No Do you have any muscle aches/pain?: No Do you have any abdominal pain?: No Are you experiencing loss of taste or smell?: No Other Medical History Have you received the Flu Vaccine for this season: No Have you received the Pneumonia Vaccine: Yes ROS Obtained: Yes other As per HPI Physical Exam General General appearance: alert and in no apparent distress Head Head exam: atraumatic and normocephalic Eye Eye exam: Present normal appearance Neck Neck exam: Present normal inspection Chest Chest inspection: Present normal inspection and symmetric chest wall rise Respiratory Respiratory exam: Present normal lung sounds bilaterally; Absent respiratory distress Cardiovascular Cardiovascular exam: Present regular rate and normal rhythm Abdominal Exam Abdominal exam: Present soft Neurological Exam Neurological exam: Present alert and oriented X3 Psychiatric Psychiatric exam: Present normal affect and normal mood Skin Skin exam: Present warm and dry Other Other exam information: 1 cm laceration to ventral aspect of right thumb Medical Decision Making Medical Records Medical records reviewed: Yes I reviewed the patient's medical records. Screening: Per USPSTF and CDC recommendations, given the prevalence of disease in our region, it is our hospital?s policy to screen for HIV and viral Hepatitis for all patients aged 18 and over and those with ongoing risk factors. Armani Inquiry Pt receiving controlled substance: No Vital Signs: 02/18/25 20:59 02/18/25 23:20 02/18/25 23:25 Temperature 98 F 98.1 F 98.4 F Temperature Source Oral Oral Pulse Rate 87 90 Pulse Rate [Right Brachial] 71 Respiratory Rate 16 20 15 Blood Pressure 128/78 135/68 Blood Pressure [Right Arm] 126/40 L Blood Pressure Mean [Right Arm] 68 Blood Pressure Source Automatic Cuff Blood Pressure Source [Right Arm] Automatic Cuff Blood Pressure Position Sitting Blood Pressure Position [Right Arm] Sitting 02 Sat by Pulse Oximetry 98 Oxygen Delivery Method Room Air Room Air Room Air Orders (Tests/Meds): ED MEDICATIONS Discontinued Medications Generic Name Dose Route Start Last Admin Trade Name Freq PRN Reason Stop Dose Admin Tetanus/Reduced Diphtheria/Acell Pertussis 0.5 ml 02/18/25 22:55 02/18/25 23:00 Tet/Diphth/Pert-Adult 0.5ml Syringe IM 02/18/25 22:56 0.5 ml .ONCE ONE Administration Medical Decision Narrative: Patient with history and exam per above presenting for evaluation of thumb laceration. No evidence of vascular injury or nerve injury. No evidence of osseous injury. Tetanus will be updated. Laceration repair was performed without complication. I discussed my clinical impression with patient and answered all questions. At this time, the evidence for any other entities in the differential is insufficient to warrant any further testing or ED observation. This was explained to the patient. The patient was advised that persistent or worsening symptoms require further evaluation. Procedures Laceration Laceration 1: Site: thumb Side (If applicable): right Size (cm): 1 Description: linear Depth: simple, single layer Local Anesthetic: lidocaine 1% Amount of anesthesia used (mL): 3 Pre-repair: wound explored and irrigated extensively Skin layer closed with: nylon Size (cm): 4-0 Number of sutures: 3 Technique: simple, interrupted Critical Care Critical Care Time Critical Care Time: No
[2025-02-18] MEDS: TET/DIPHTH/PERT-ADULT 0.5ML SYRINGE 0.5 ML IM (23:00)
[2025-02-18 23:20] VITALS: BP 128/78; PULSE 87; RESP 20; TEMP 36.7; O2SAT 98
[2025-02-18 23:25] VITALS: BP 135/68; PULSE 90; RESP 15; TEMP 36.9; O2SAT 99
== END 2025-02-18 23:27 | disposition home or self-care (01) ==
PROVIDERS: Emergency Provider Emergency Medicine; PCP Family Medicine
DX: S61.012A Laceration without foreign body of left thumb without damage to nail, initial encounter (principal); W26.8XXA Contact with other sharp object(s), not elsewhere classified, initial encounter
CPT/HCPCS: 90471; 90715; 99283

== ENCOUNTER 2025-10-14 08:08 | Outpatient (CLI) | payer MEDICARE, SELFPAY ==
--- OUTSIDE RECORDS SUMMARY | 2025-09-04 11:48 | XMS_ITS | Encounter Summary ---
Author Organization [facility] Address [address] [place] [address] Care Team Providers Care Relaster Name Role Phone Gary Emery MD Primary Care Provider [phone] Reason for Referral * Imaging (Routine) - Closed Specialty Diagnoses / Procedures Referred By Graciela moncada Referred To Contact Radiology Diagnoses Non-small cell carcinoma of left lung Procedures CT Chest wo IV Contrast Chino Arroyo, DO [address] [place] [phone] Phone: tel: fax: Referral ID Status Reason Start Date Expiration Date Visits Re quested Visits Authorized [id number] Closed 01/30/2025 08/01/2026 1 1 Reason for Visit * Imaging (Routine) - Closed Specialty Diagnoses / Procedures Referred By Graciela moncada Referred To Contact Radiology Diagnoses Non-small cell carcinoma of left lung Procedures CT Chest wo IV Contrast Chino Arroyo, DO [address] [place] [address] Phone: tel: fax: Referral ID Status Reason Start Date Expiration Date Visits Re quested Visits Authorized [id number] Closed 01/30/2025 08/01/2026 1 1 Encounter Details Date Type Department Care Team (Latest Contact Info) Description 09/04/2025 12:48 PM EDT - 09/04/2025 11:59 PM EDT Hospital Encounter [facility] [address], [address]nd [place] [address] Non-small cell carcinoma of left lung Discharge Disposition: Home or Self Care Social History Tobacco Use Types Packs/Day Years Used Date Smoking Tobacco: Former Cigarettes 0.5 50 0 03/1973 - 03/2023 Smokeless Tobacco: Never Alcohol Use Standard Drinks/Week Comments Never 0 (1 standard drink = 0.6 oz pur e alcohol) Humiliation, Afraid, Rape, and Kick questionnair e Answer Date Recorded Within the last year, have y ou been afraid of your partner or ex-partner? No 01/25/2024 Within the last year, have y ou been humiliated or emotionally abused in other ways by your partner or ex-partner? No Within the last year, have y ou been kicked, hit, slapped, or otherwise physically hurt by your partner or ex-partner? No 01/25/2024 Within the last year, have y ou been raped or forced to have any kind of sexual activity by your partner or ex-partner? No 01/25/2024 Hunger Vital Sign Answer Date Recorded Within the past 12 months, y ou worried that your food would run out before you got the money to buy more. Never true 01/25/20 24 Within the past 12 months, t he food you bought just didn't last and you didn't have money to get more. Never true 01/25/2024 PRAPARE - Transportation Answer Date Re corded In the past 12 months, has l ack of transportation kept you from medical appointments or from getting medications? No 05/2024 In the past 12 months, has l ack of transportation kept you from meetings, work, or from getting things needed for daily living? No 01/25/2024 Housing Stability Vital Sign Answer Luis Daniel e Recorded In the last 12 months, was t here a time when you were not able to pay the mortgage or rent on time? No 01/25/2024 Number of Places Lived in the Last Year Not on f ile 01/25/2024 In the last 12 months, was t here a time when you did not have a steady place to sleep or slept in a residential (including now)? No 01/25/2024 Utilities Answer Date Recorded In the past 12 months has th e [employer], gas, oil, or water company threatened to shut off services in your home? No 01/25/2024 Comments No Sex and Gender Information Value Date Recorded Sex Assigned at Not on file Legal Sex Female 8:44 PM EDT Gender Identity Not on file Sexual Orientation Not on file documented as of this encounter Functional Status * Calculated C-SSRS Risk Score (Lifetime/Recent) Answer Date of Assessment Author No Risk Indicated 09/04/2025 2:32 PM EDT Karla Braeux * Question Answer Date of Assessment Author 1. Wish to be (Past 1 Month) No 025 2:32 PM EDT Karla Breaux 2. Non-Specific Active Suici fartun Thoughts (Past 1 Month) No 09/04/2025 2:32 PM EDT Shonna Breaux 6. Suicidal Behavior (Lifetime) No 2:32 PM EDT Karla Breaux documented as of this encounter Medications at Time of Discharge acetaminophen (Tylenol) 500 MG tablet Take 2 tablets (1,000 mg) by mouth every 6 (six) hours. 100 tablet 01/27/2024 alendronate (Fosamax) 35 MG tablet Take 1 tablet (35 mg) by mouth every 7 (seven) days. Take in the morning with a full glass of water, on an empty stomach, and do not take anything else by mouth or lie down for the next 30 min. Calcium-Vitamin D (CALTRATE 600 PLUS-VIT D PO) Take 1 tablet by mouth 1 (one) time each day in the morning. cetirizine (ZyrTEC) 10 MG tablet Take 1 tablet (10 mg) by mouth 1 (one) time each day in the morning. 10/18/2023 citalopram (CeleXA) 40 MG tablet Take 1 tablet (40 mg) by mouth 1 (one) time each day in the morning. 10/20/2023 cyanocobalamin (cyancobalamin) 500 MCG tablet Take 1 tablet (500 mcg) by mouth 1 (one) time each day in the morning. levothyroxine (Synthroid, Levoxyl) 75 MCG tablet TAKE 1 TABLET BY MOUTH ONCE DAILY IN THE MORNING ON AN EMPTY STOMACH 09/27/2024 Multiple Vitamins-Mineral s (Centrum Women) tablet Take 1 tablet by mouth 1 (one) time each day in the morning. naloxone (Kloxxado) 8 mg/0.1 mL nasal spray 1. Give 1 spray in nostril for no/slow breathing or cannot wake after opioid use 2. Call 911 3. Repeat in other nostril if symptoms continue 1 each 01/27/2024 omeprazole (PriLOSEC) [address] capsule Take 1 capsule (40 mg) by mouth 1 (one) time each day in the morning. 06/25/2023 oxyCODONE (Roxicodone) 5 MG immediate release tablet Take 1 tablet (5 mg) by mouth every 6 (six) hours if needed for moderate pain. 12 tablet 01/27/2024 pravastatin (Pravachol) 20 MG tablet Take 1 tablet (20 mg) by mouth 1 (one) time each day in the morning. 06/25/2023 risedronate (Actonel) 35 MG tablet 10/01/2024 topiramate (Topamax) 100 MG tablet Take 1 tablet (100 mg) by mouth every night. 08/29/2023 traZODone (Desyrel) 50 MG tablet Take 1 tablet (50 mg) by mouth every night. 08/29/2023 documented as of this encounter Plan of Treatment Upcoming Encounters Date Type Department Care Team (Late st Contact Info) Description 03/05/2026 9:30 AM EDT Appointment [facility] [address] [place] [address] 03/05/2026 10:45 AM EDT Office Visit [facility] [address] [facility], 2nd [place] [address] Chino Arroyo, DO [address] [address] documented as of this encounter Procedures Procedure Name Priority Date/Time Associated Diagnosis Comments CT CHEST WO IV CONTRAST Routine 09/04/2025 1:06 PM EDT Non-small cell carcinoma of left lung documented in this encounter Results * CT Chest wo IV Contrast (09/04/2025 1:06 PM EDT) Anatomical Region Laterality Modality Chest Computed Tomogra phy Impressions 09/04/2025 1:31 PM EDT Slight interval enlargement of the now 6 mm right upper lobe pulmonary nodule. This is indeterminate. Otherwise no evidence of recurrence or metastasis. CRITICAL RESULT: No. COMMUNICATION: Per this written report. Drafted by Alli Zamudio MD on 09/04/2025 1:27 PM Final report signed by Alli Zamudio MD on 09/04/2025 1:31 PM Narrative 09/04/2025 1:31 PM EDT CLINICAL INDICATION: Non-small cell lung cancer (NSCLC), monitor TECHNIQUE: Multiple CT axial images were obtained from thoracic inlet through upper abdomen without administration of IV contrast. Total DLP (Dose-Length Product): 310.78 mGy.cm. Please note: The reported value represents the total of one or more individual components during the CT acquisition on this date and at this time, and as such, the same value may appear in more than one CT report depending on the interpreting/reporting physicians. COMPARISON: January 30, 2025 FINDINGS: Lymph Nodes: No adenopathy. Thyroid: No nodule or mass Cardiovascular: Heart size is normal. Mild atherosclerosis of the arch and great vessels. Lungs: Surgical changes of left upper lobectomy. Solid noncalcified subpleural right upper lobe pulmonary nodule measuring 6 mm, previously 4 mm. The residual airways are patent. There is basilar atelectasis or scar. Pleura: No pleural effusion or pneumothorax. Musculoskeletal and Body Wall: Multilevel degenerative disc disease which is moderate to severe. No evidence of osseous metastases. Unchanged soft tissue nodule in the right breast. Procedure Note Alli Zamudio MD - 09/04/2025 CLINICAL INDICATION: Non-small cell lung cancer (NSCLC), monitor TECHNIQUE: Multiple CT axial images were obtained from thoracic inlet through upperabdomen without administration of IV contrast. Total DLP (Dose-Length Product): 310.78 mGy.cm. Please note: The reportedvalue represents the total of one or more individual components during theCT acquisition on this date and at this time, and as such, the same valuemay appear in more than one CT report depending on theinterpreting/reporting physicians. COMPARISON: January 30, 2025 FINDINGS: Lymph Nodes: No adenopathy. Thyroid: No nodule or mass Cardiovascular: Heart size is normal. Mild atherosclerosis of the arch andgreat vessels. Lungs: Surgical changes of left upper lobectomy. Solid noncalcifiedsubpleural right upper lobe pulmonary nodule measuring 6 mm, previously 4mm. The residual airways are patent. There is basilar atelectasis orscar. Pleura: No pleural effusion or pneumothorax. Musculoskeletal and Body Wall: Multilevel degenerative disc disease whichis moderate to severe. No evidence of osseous metastases. Unchanged softtissue nodule in the right breast. IMPRESSION: Slight interval enlargement of the now 6 mm right upper lobe pulmonarynodule. This is indeterminate. Otherwise no evidence of recurrence ormetastasis. CRITICAL RESULT: No. COMMUNICATION: Per this written report. Drafted by Alli Zamudio MD on 09/04/2025 1:27 PM Final report signed by Alli Zamudio MD on 09/04/2025 1:31 PM Chino Arroyo DO IM CT PROCEDURES Final Resul t documented in this encounter Visit Diagnoses Diagnosis Non-small cell carcinoma of left lung documented in this encounter Additional Health Concerns Assessment Noted Time A fall risk assessment has been complete d for the patient 09/04/2025 2:31 PM EDT A Body Mass Index follow-up plan has been documented for the patient 09/08/2025 3:39 PM EDT documented as of this encounter Care Teams Relaster Relationship Specialty Start Date End Date Gary Emery MD [address] [place] [address] PCP - General 11/16/23 documented as of this encounter
--- OUTSIDE RECORDS SUMMARY | 2025-09-04 13:15 | XMS_ITS | Encounter Summary ---
Author Organization [facility] Address [address] [place] [address] Care Team Providers Care Rn Call Center Name Role Phone Gary Emery MD Primary Care Provider [phone] Reason for Referral * Imaging (Routine) - Pending Review Specialty Diagnoses / Procedures Referred By Graciela moncada Referred To Contact Radiology Diagnoses Non-small cell carcinoma of left lung Procedures CT Chest wo IV Contrast Chino Arroyo, [address] [address] Phone: tel: fax: Referral ID Status Reason Start Date Expiration Date V isits Requested Visits Authorized [id number] Pending Review 09/04/2025 03/06/2027 1 1 Reason for Visit * Reason Comments Follow-up Encounter Details Date Type Department Care Team (Late st Contact Info) Description 09/04/2025 2:15 PM EDT Office Visit [facility] [address] [place] [address] Chino Arroyo DO [address] [place] [phone] Non-small cell carcinoma of left lung Social History Tobacco Use Types Packs/Day Years [...] place to sleep or slept in a alf (including now)? No 01/25/2024 Utilities Answer Date Recorded In the past 12 months has th e electric, gas, oil, or water company threatened to shut off services in your home? No 01/25/2024 Comments No Sex and Gender Information Value Date Recorded Sex Assigned at Not on file Legal Sex Female 8:44 PM EDT Gender Identity Not on file Sexual Orientation Not on file documented as of this encounter Last Filed Vital Signs Vital Sign Reading Time Taken Comments Blood Pressure 111/74 09/04/2025 2:31 PM EDT Pulse 63 09/04/2025 2:31 PM EDT Temperature 36.6 C (97.8 F) 09/04/2025 2:31 PM EDT Respiratory Rate 16 09/04/2025 2:31 PM EDT Oxygen Saturation 97% 09/04/2025 2:31 PM EDT Inhaled Oxygen Concentration - - Weight 68 kg (149 lb 14.6 oz) 09/04/2025 2:31 PM EDT Height 157.5 cm (5' 2.01 ) 09/04/2025 2:31 PM ED T Body Mass Index 27.41 09/04/2025 2:31 PM EDT documented in this encounter Functional Status * Calculated C-SSRS Risk Score (Lifetime/Recent) Answer Date of Assessment Author No Risk Indicated 09/04/2025 2:32 PM EDT Karla Breaux * Question Answer Date of Assessment Author 1. Wish to be (Past 1 Month) No 025 2:32 PM EDT Karla Breaux 2. Non-Specific Active Suici fartun Thoughts (Past 1 Month) No 09/04/2025 2:32 PM EDT Shonna Breaux 6. Suicidal Behavior (Lifetime) No 2:32 PM EDT Karla Breaux documented as of this encounter Miscellaneous Notes * Progress Notes - Carmelina Stewart PA - 09/04/2025 2:15 PM EDT Images from the original note were not included. 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 female with history of MARIELA SCC now s/p left VATS upper lobectomy 01/24/24 who presents for routine oncologic surveillance. Doing well today with no complaints. ROS: General: no fevers or chills, no heat or cold intolerance, no subjective weight loss HEENT: no changes in vision, no sore throat, no changes in hearing, no tinnitus, no nasal drainage CV: no chest pain, no palpitations, no lightheadedness, no PND, no orthopnea, no LE swelling, no claudication Pulm: no shortness of breath, no cough, no hemoptysis GI: no nausea, no vomiting, no abdominal pain, no constipation, no diarrhea, no melenal, no hematochezia, no dysphagia, no heartburn Skin: no rash Neuro: no numbness, no tingling, no headache, no difficulties with speech, no gait disturbance Heme: no easy bruising, no bleeding from the gums Endo: No polyuria or polydypsia Psych: no depression or anxiety Physical exam: Visit Vitals BP 111/74 (BP Location: Left arm, Patient Position: Sitting, BP Cuff Size: Adult) Pulse 63 Temp 36.6 ??C (97.8 ??F) (Oral) Ht 1.575 m (5' 2.01 ) Wt 68 kg (149 lb 14.6 oz) SpO2 97% BMI 27.41 kg/m?? General: alert and oriented, appropriate Lungs: CTA B, no wheezes or rhonchi Heart: RRR, no murmurs Abdomen: soft NT/ND, normal bowel sounds Lymph nodes: no palpable supraclavicular or cervical adenopathy Extremities: no peripheral edema Skin: no rash, no cyanosis and warm to touch Psychiatric: oriented to person/place/time and normal mood/affect Imaging: CT Chest 09/04/25: IMPRESSION: Slight interval enlargement of the now 6 mm right upper lobe pulmonary nodule. This is indeterminate. Otherwise no evidence of recurrence or metastasis. Additional Testing: none Assessment and Plan: Cathy Boyce is a 70 y.o. female with history of MARIELA SCC now s/p left VATS upper lobectomy 01/24/24 who presents for routine oncologic surveillance. Slight increase in peripheral RUL nodule from 4mmto 6mm. Will follow closely. No disease progression. Images and pathology reviewed and discussed with the patient at today's visit and all questions answered. Patient will return to clinic in [address] without contrast. The patient understands this plan and will call our office for any additional questions or concerns. ЮЛИЯ Kramer 09/04/25 3:06 PM Cosigned by Chino Arroyo, at 09/08/2025 3:22 PM EDT Associated attestation - Chino Arroyo, - 09/08/2025 3:22 PM EDT I attest to being involved in more than half the total time in patient care. documented in this encounter Plan of Treatment Upcoming Encounters Date Type Department Care Team (Late st Contact Info) Description 03/05/2026 9:30 AM EDT Appointment [facility] [address] [place] [address] 03/05/2026 10:45 AM EDT Office Visit [facility] [address] [facility], [address]nd [place] [address] Chino Arroyo, DO [address] [facility] [address] [place] [address] Scheduled Orders Name Type Priority Associated Diagnoses Orde r Schedule CT Chest wo IV Contrast Imaging Routine Non-small cell carcinoma of left lung (CMS/HCC) Expected: 03/05/2026 (Approximate), Expires: 03/08/2027 documented as of this encounter Visit Diagnoses Diagnosis Non-small cell carcinoma of left lung documented in this encounter Additional Health Concerns Assessment Noted Time A fall risk assessment has been complete d for the patient 09/04/2025 2:31 PM EDT A Body Mass Index follow-up plan has been documented for the patient 09/08/2025 3:39 PM EDT documented as of this encounter Care Teams Rn Call Center Relationship Specialty Start Date End Date Gary Emery MD [address] [facility] [address], [place] [id number] PCP - General 11/16/23 documented as of this encounter
--- NOTE | 2025-10-14 08:12 | CT_ITS ---
FINAL REPORT TECHNIQUE: Thin section axial images were obtained through the abdomen after intravenous contrast. Oral contrast was given. Reconstruction images were obtained from the axial data. Exam was performed using dose reduction techniques. CLINICAL HISTORY: RLQ ABD PAIN oral and IV FINDINGS: There is left lower lobe atelectasis. The liver is homogeneous. The gallbladder is absent. The spleen, adrenal glands, and pancreas are unremarkable. There is no hydronephrosis or solid renal mass. Abdominal GI tract is without acute abnormality. There is no abdominal lymphadenopathy or ascites. There is no evidence of small bowel obstruction. The appendix is not identified but there are no secondary findings to suggest appendicitis. There is a large amount of stool in the colon. The uterus is globular with fibroids. There is a small infraumbilical fat-containing ventral hernia. There is no pelvic lymphadenopathy or ascites. No acute osseous abnormalities identified. IMPRESSION: Constipation. No CT evidence of acute intra-abdominal or intrapelvic abnormality. Reviewed, Interpreted and Dictated by Isabel Garcia MD Transcribed by Ankita Patrick Authenticated and [facility]
--- OUTSIDE RECORDS SUMMARY | 2025-10-14 08:12 | XMS_ITS | Encounter Summary ---
Author Organization Healthcare Address [address] [place] [address] Care Team Providers Care Central Office Equipment Engineer Name Role Phone Gary Emery MD Primary Care Provider [phone] Encounter Details Date Type Department Care Team (Late Contact Info) Description 10/26/2023 Orders Only External Location [address] [place] [phone] Gary Emery MD [address] [facility] [address] [place] [address] Social History Tobacco Use Types Packs/Day Years Used Date Smoking Tobacco: Never Assessed Comments Unknown Sex and Gender Information Value Date Recorded Sex Assigned at Not on file Legal Sex Female 8:44 PM EDT Gender Identity Not on file Sexual Orientation Not on file documented as of this encounter Plan of Treatment Upcoming Encounters Date Type Department Care Team (Late Contact Info) Description 03/05/2026 9:30 AM EDT Appointment [facility] Radiology [address] [place] [phone] 03/05/2026 10:45 AM EDT Office Visit [facility] Res[facility] [address] [facility], [address]nd [place] [phone] Chino Arroyo, DO [address] [facility] [address] [place] [phone] documented as of this encounter Procedures Procedure Name Priority Date/Time Associated Diagnosis Comments PET OUTSIDE IMAGES 10/26/2023 11:29 AM EST documented in this encounter Results * PET OUTSIDE IMAGES (10/26/2023 11:29 AM EST) Anatomical Region Laterality Modality Nuclear Medicine 10/26/2023 11:2 9 AM EST Gary Emery MD IMG NM PROCEDURES Final Resu lt documented in this encounter Visit Diagnoses Not on filedocumented in this encounter Care Teams Central Office Equipment Engineer Relationship Specialty Start Date End Date Gary Emery MD [address] [place] [facility] [address], [place] [address] PCP - General 11/16/23 documented as of this encounter
--- OUTSIDE RECORDS SUMMARY | 2025-10-14 08:12 | XMS_ITS | Encounter Summary ---
Author Organization [facility] Address [address] [place] [address] Care Team Providers Care Academic Hospitalist Name Role Phone Gary Emery MD Primary Care Provider [phone] Encounter Details Date Type Department Care Team (Latest Contact Info) Description 09/01/2025 Travel Social History Tobacco Use Types Packs/Day Years [...] place to sleep or slept in a longterm (including now)? No 01/25/2024 Utilities Answer Date [...] EDT Appointment [facility] [address] [place] [address] 03/05/2026 10:45 AM EDT Office Visit [facility] Res[facility] [address] [place] [address] Chino Arroyo D, DO [address] [facility] [address] [place] [address] documented as of this encounter Visit Diagnoses Not on filedocumented in this encounter Additional Health Concerns Assessment Noted Time A fall risk assessment has been complete d for the patient 01/30/2025 9:44 AM EDT A Body Mass Index follow-up plan has been documented for the patient 01/31/2025 1:17 PM EDT documented as of this encounter Care Teams Academic Hospitalist Relationship Specialty Start Date End Date Gary Emery MD [address] [place] [id number] PCP - General 11/16/23 documented as of this encounter
--- OUTSIDE RECORDS SUMMARY | 2025-10-14 08:12 | XMS_ITS ---
Author Organization [facility] Address [address] [place] [address] Care Team Providers Care Living Supervisor Name Role Phone Gary Emery MD Primary Care Provider [phone] Active Problems Problem Noted Date Diagnosed Date GERD (gastroesophageal reflux disease) Overview (01/26/2024): Continue PPI Anemia 01/26/2024 Overview (01/26/2024): Possibly due to malignancy Monitor Electrolyte abnormality 01/26/2024 Overview (01/26/2024): Hypomagnesemia Hypophosphatemia Monitor - Replete as indicated Urinary retention 01/26/2024 Overview (01/26/2024): Required in/out cath on 01/25 Monitor If perez needs re-anchored - consult urology Hyperlipidemia 01/25/2024 Overview (01/25/2024): Resume home meds as able Anxiety 01/25/2024 Overview (01/25/2024): Resume home meds as able Non-small cell carcinoma of left lung 01/24/2024 Overview (01/26/2024): S/p VATS MARIELA lobectomy on 01/24/2024 Chest tube removed on POD2 -f/u path Current Treatment and Therapy Plans No current plan information found. Past Treatment and Therapy Plans No past plan information found. Lifetime Dose Tracking * Chemical Lifetime Dose Automatic Entry Manual Entr y Fluoro Time 9.43 minutes 9.43 minutes 0 minutes Air Kerma 170.5 mGy 170.5 mGy 0 mGy Resolved Problems Problem Noted Date Diagnosed Date Resolved Date Acute postoperative pain 01/25/2024 Overview (01/26/2024): -[facility]
--- OUTSIDE RECORDS SUMMARY | 2025-10-14 08:12 | XMS_ITS | Encounter Summary ---
Author Organization [facility] Address [address] [place] [address] Care Team Providers Care Advertising Editor Name Role Phone Gary Emery MD Primary Care Provider [phone] Encounter Details Date Type Department Care Team (Latest Contact Info) Description 09/04/2025 Travel Social History Tobacco Use Types Packs/Day [...] place to sleep or slept in a skilled nursing (including now)? No 01/25/2024 Utilities Answer Date [...] Karla Breaux documented as of this encounter Plan of Treatment Upcoming Encounters Date Type Department Care Team (Late st Contact Info) Description 03/05/2026 9:30 AM EDT Appointment [facility] [address] [place] [address] 03/05/2026 10:45 AM EDT Office Visit [facility] Res[facility] [address], [address] [place] [address] Chino Arroyo D, DO [address] [place] [address] documented as of this encounter Visit Diagnoses Not on filedocumented in this encounter Additional Health Concerns Assessment Noted Time A fall risk assessment has been complete d for the patient 09/04/2025 2:31 PM EDT A Body Mass Index follow-up plan has been documented for the patient 09/08/2025 3:39 PM EDT documented as of this encounter Care Teams Advertising Editor Relationship Specialty Start Date End Date Gary Emery MD [address] [facility] [address] [place] [address] PCP - General 11/16/23 documented as of this encounter
--- OUTSIDE RECORDS SUMMARY | 2025-10-14 08:12 | XMS_ITS | Clinical Summary ---
Author Organization [facility] ystem Address [address] [place] [address] Care Team Providers Care Coordinator Of Library Services Name Role Phone Unavailable Primary Care Provider Unavailabl e Social History Tobacco Use Types Packs/Day Years Used Date Smoking Tobacco: Never Assessed Abuse Screen Answer Date Recorded Unsafe at Home or Work/School Not on file Feels Threatened by Someone? Not on file 07/2023 Does Anyone Keep You from Co ntacting Others or Doint Things Outside the Home? Not on file 08/28/2023 Physical Sign of Abuse Present Not on file 1 Housing Stability Answer Date Recorded Current Living Arrangements Not on file 07/2023 Potentially Unsafe Housing Conditions Not on kaleb e 08/28/2023 Family and Community Support Answer Luis Daniel e Recorded Help with Day-to-Day Activities Not on file 08/28/2023 Lonely or Isolated Not on file 08/28/2023 Employment Answer Date Recorded Do you want help finding or keeping work or a jossue b? Not on file 08/28/2023 Disabilities Answer Date Recorded Concentrating, Remembering, or Making Decisions Difficulty Not on file 08/28/2023 Doing Errands Independently Difficulty Not on fi le 08/28/2023 Education Answer Date Recorded Help with school or training? Not on file Preferred Language Not on file 08/28/2023 Comments Unknown Sex and Gender Information Value Date Recorded Sex Assigned at Not on file Legal Sex Female 12:37 PM EDT Gender Identity Not on file Sexual Orientation Not on file Plan of Treatment Health Maintenance Due Date Last Done Comments ANNUAL PHYSICAL 1955 DXA SCAN 1955 HEPATITIS C SCREENING 1955 TDAP/TD VACCINES (1 - Tdap) 1974 MAMMOGRAM 1995 COLOGUARD 2000 COLON CANCER SCREENING 5 YEAR SIGMOIDOSCOPY 2000 COLONOSCOPY 2000 [address] CANCER SCREENING 2000 CT COLONOGRAPHY 2000 FECAL OCCULT BLOOD TEST 2000 FIT Testing (1 year) 2000 Pneumococcal Vaccine 50+ (1 of 1 - PCV) 2005 ZOSTER VACCINE (1 of 2) 2005 INFLUENZA VACCINE 06/20/2025 COVID-19 Vaccine (1 - season) [address] [place] [address] MEDICARE A & B [facility]
--- OUTSIDE RECORDS SUMMARY | 2025-10-14 08:12 | XMS_ITS | Encounter Summary ---
Author Organization Healthcare Address [address] [place] [address] Care Team Providers Care Meat Wrapper Name Role Phone Gary Emery MD Primary Care Provider [phone] Encounter Details Date Type Department Care Team (Late Contact Info) Description 10/18/2023 Orders Only External Location [address] [place] [id number] Gary Emery MD [address] [facility] [address] [place] [address] Social History Tobacco Use Types Packs/Day Years [...] EDT Appointment [facility] [address] [place] [phone] 03/05/2026 10:45 AM EDT Office Visit [facility] [address] [facility], [address]nd [place] [address] Chino Arroyo, DO [address] [facility] [address] [place] [phone] documented as of this encounter Procedures Procedure Name Priority Date/Time Associated Diagnosis Comments CT OUTSIDE IMAGES 10/18/2023 8:47 AM EST documented in this encounter Results * CT OUTSIDE IMAGES (10/18/2023 8:47 AM EST) Anatomical Region Laterality Modality Computed Tomogra phy 10/18/2023 8:47 AM EST Gary Emery MD IMG CT PROCEDURES Final Resu lt documented in this encounter Visit Diagnoses Not on filedocumented in this encounter Care Teams Meat Wrapper Relationship Specialty Start Date End Date Gary Emery MD [address] [place] [address] PCP - General 11/16/23 documented as of this encounter
--- OUTSIDE RECORDS SUMMARY | 2025-10-14 08:12 | XMS_ITS | Clinical Summary ---
Author Organization [facility] Address [address] [place] [address] Care Team Providers Care Nonprofit Manager Name Role Phone Gary Emery MD Primary Care Provider [phone] Allergies Active Allergy Reactions Criticality Noted Date Comments Amoxicillin-Pot Clavulanate Vomiting 11/16/20 23 Medications omeprazole (PriLOSEC) [address] capsule Take 1 capsule (40 mg) by mouth 1 (one) time each day in the morning. 3 Active pravastatin (Pravachol) 20 MG tablet Take 1 tablet (20 mg) by mouth 1 (one) time each day in the morning. 3 Active topiramate (Topamax) 100 MG tablet Take 1 tablet (100 mg) by mouth every night. 3 Active traZODone (Desyrel) 50 MG tablet Take 1 tablet (50 mg) by mouth every night. 3 Active citalopram (CeleXA) 40 MG tablet Take 1 tablet (40 mg) by mouth 1 (one) time each day in the morning. 3 Active cetirizine (ZyrTEC) 10 MG tablet Take 1 tablet (10 mg) by mouth 1 (one) time each day in the morning. 3 Active cyanocobalamin (cyancobalamin) 500 MCG tablet Take 1 tablet (500 mcg) by mouth 1 (one) time each day in the morning. Active Multiple Vitamins-Minera ls (Centrum Women) tablet Take 1 tablet by mouth 1 (one) time each day in the morning. Active Calcium-Vitamin D (CALTRATE 600 PLUS-VIT D PO) Take 1 tablet by mouth 1 (one) time each day in the morning. Active acetaminophen (Tylenol) 500 MG tablet Take 2 tablets (1,000 mg) by mouth every 6 (six) hours. 100 tablet 4 Active methocarbamol (Robaxin) 500 MG tablet Take 1 tablet (500 mg) by mouth every 6 (six) hours. 120 tablet 4 Active oxyCODONE (Roxicodone) 5 MG immediate release tablet Take 1 tablet (5 mg) by mouth every 6 (six) hours if needed for moderate pain. 12 tablet 4 Active naloxone (Kloxxado) 8 mg/0.1 mL nasal spray 1. Give 1 spray in nostril for no/slow breathing or cannot wake after opioid use 2. Call 911 3. Repeat in other nostril if symptoms continue 1 each 4 Active levothyroxine (Synthroid, Levoxyl) 75 MCG tablet TAKE 1 TABLET BY MOUTH ONCE DAILY IN THE MORNING ON AN EMPTY STOMACH 4 Active risedronate (Actonel) 35 MG tablet 4 Active alendronate (Fosamax) 35 MG tablet Take 1 tablet (35 mg) by mouth every 7 (seven) days. Take in the morning with a full glass of water, on an empty stomach, and do not take anything else by mouth or lie down for the next 30 min. Active Active Problems Problem Noted Date Diagnosed Date GERD (gastroesophageal reflux disease) 4 Overview (01/26/2024): Continue PPI Anemia 01/26/2024 Overview [...] Chest tube removed on POD2 -f/u path Resolved Problems Problem Noted Date Diagnosed Date Resolved Date Acute postoperative pain 01/25/2024 Overview (01/26/2024): -[facility] Encounters Date Type Department Care Team Description 09/04/2025 2:15 PM EDT Office Visit [facility] [address] [facility], [address] [place] [address] Chino Arroyo, DO Non-small cell carcinoma of left lung 09/04/2025 12:48 PM EDT - 09/04/2025 11:59 PM EDT Hospital Encounter [facility] [address] [place] [phone] Non-small cell carcinoma of left lung Discharge Disposition: Home or Self Care 09/04/2025 Travel 09/01/2025 Travel 08/14/2025 Telephone Pav [facility] Res[facility] [address] [facility], [address]nd [place] [address] Chino Arroyo DO 08/10/2025 Travel 07/24/2025 Travel from Last 3 Months Immunizations Immunization Administration Dates Next Due Moderna Covid-19 Vaccine 12y +, Ramesh Protein, Preservative free 08/14/2023 Family History Medical History Relation Name Comments Lung cancer Father Tuberculosis Other Tongue cancer Sister Malig Hyperthermia Neg Hx Relation Name Status Comments Father Other Sister Social History Tobacco Use Types Packs/Day Years [...] on file Sexual Orientation Not on file Last Filed Vital Signs Vital Sign Reading [...] Mass Index 27.41 09/04/2025 2:31 PM EDT Plan of Treatment Upcoming Encounters Date Type Department Care Team (Late st Contact Info) Description 03/05/2026 9:30 AM EDT Appointment [facility]iology [address] [place] [address] 03/05/2026 10:45 AM EDT Office Visit [facility] [address] [place] [address] Chino Arroyo, DO [address] [place] [address] Health Maintenance Due Date Last Done Comments [facility]-Bone Density Scan 1955 [facility]-Depression Screening 1955 [facility]-Hepatitis C Screening 1955 [facility]-Medicare Annual Wellness (AWV) 1955 [facility]-/Child/Adol SDOH Screenings 1955 [facility]- SDOH Screenings 1973 [facility]-Adult SDOH Screenings 1973 [facility]-Pneumococcal Vaccine: 50+ Years (1 of 2 - PCV) 1974 [facility]-Zoster Vaccines (1 of 2) 1974 CT Colonography 2000 Colonoscopy 2000 FIT-DNA 2000 FIT 2000 FOBT 2000 Sigmoidoscopy 2000 [facility]-Colorectal Cancer Screening 2000 [facility]-Breast Cancer Screening 2005 [facility]-RSV Vaccine: 60+ Years or (1 - Risk 60-74 years 1-dose series) 2015 [id number] Vaccine (9 - Moderna risk 2024- season) 2026 09/02/2025, 08/29/2024, 08/14/2023, Additional history exists [facility]-DTaP,Tdap,and Td Vaccines (2 - Td or Tdap) 02/18/2035 02/18/2025 [facility]-Influenza Vaccine Completed 09/02/2025 , 08/29/2024, 08/14/2023, Additional history exists [facility]-Lung Cancer Screening Discontinued 2024, 01/30/2025, 09/23/2024, Additional history exists [facility]-Obesity Intervention Completed 025, 01/30/2025, 10/03/2024, Additional history exists HPV Vaccines Aged Out No longer eligi ble based on patient's age to complete this topic [facility]-HIB Vaccines Aged Out No longer e ligible based on patient's age to complete this topic [facility]-Hepatitis A Vaccines Aged Out No longer eligible based on patient's age to complete this topic [facility]-IPV Vaccines Aged Out No longer e ligible based on patient's age to complete this topic [facility]-Rotavirus Vaccines Aged Out No lo nger eligible based on patient's age to complete this topic Procedures Procedure Name Priority Date/Time Associated Diagnosis Comments CT CHEST WO IV CONTRAST Routine 09/04/2025 1:06 PM EDT Non-small cell carcinoma of left lung from Last 3 Months Results * CT Chest wo IV Contrast [...] on 09/04/2025 1:31 PM Chino Arroyo DO IMG CT PROCEDURES Final Resul t from Last 3 Months Insurance [facility]ICARE [facility] Advance Directives * Full Code (Latest Code Status on File) Date Activated Date Inactivated Comments 01/24/2024 11:43 AM 01/27/2024 4:24 PM Question Answer Comments Patient has decision-making capacity? Yes Care Teams Nonprofit Manager Relationship Specialty Start Date End Date Gary Emery MD [address] [place] [facility] [address] [place] [address] [facility] - General 11/16/23
[2025-10-14 08:34] LABS: Blood Urea Nitrogen 12 mg/dl (7-17); Creatinine,Serum 0.80 mg/dl (0.52-1.04); Estimated Glomerular Filt Rate 71 ml/min (>60); GFR (African American) 86 ML/MIN (>60)
[2025-10-14] MEDS: BARIUM SULFATE(READI-CAT2);450ML BOTTLE 450 ML PO (09:08)
[2025-10-14] MEDS: SODIUM CHLORIDE 0.9% 10ML SYR (RAD ONLY) 10 ML IV (09:08)
[2025-10-14] MEDS: IOPAMIDOL-370 (76%);100ML BOTTLE 75 ML IV (09:08)
== END 2025-10-14 23:59 | disposition home or self-care (01) ==
LOC: RAD 08:11
PROVIDERS: PCP Family Medicine; Visit Provider Family Medicine
DX: K59.00 Constipation, unspecified (principal)
CPT/HCPCS: 36415; 74177; 82565; 84520; Q9967